=== PATIENT | female | born 1960 | race Caucasian/White ===

== ENCOUNTER 2016-12-02 09:42 | Inpatient (IN) | payer MEDICAID, OTHER ==
[~2016-12-02] VITALS: Ht 170.2 cm; Wt 90.7 kg
[~2016-12-02 09:42] MED LIST: ALBU2.5V13 NEB; CLON1TAB PO; FLEXERIL; FLUT16SP2 NS; GABA600T2 PO; HYDR-3326 PO; LEVE500T9 PO; LEVO750T21 PO; Menthol/Cetylpyrd Cl PO; PHEN100C4 PO; PRED10TA PO; PRED20TA GT; PRED50TA PO; VENL75TA54 PO
[2016-12-02] MEDS ORDERED: IV SET PRIMARY PUMP SET 1 EA INFUS.SET MC ONE ×2 (12:55→20:43)
[2016-12-02] MEDS ORDERED: IV NS 0.9% 1,000 ML ONE ×2 (12:55→15:40)
[2016-12-02] MEDS ORDERED: IV NS 0.9% 1,000 ML IV ONE ×2 (13:00→15:30)
[2016-12-02 13:03] LABS: BASOPHILS # (AUTO) 0.1 /CMM (0.0-0.2); BASOPHILS % (AUTO) 0.6 % (0.0-2.0); EOSINOPHILS # (AUTO) 0.3 /CMM (0.0-0.7); EOSINOPHILS % (AUTO) 2.8 % (0.0-6.0); HEMATOCRIT 35 % (33-45); HEMOGLOBIN 12.1 g/dL (11.5-14.8); LYMPHOCYTES # (AUTO) 3.2 /CMM (0.8-4.8); LYMPHOCYTES % (AUTO) 32.7 % (20.0-44.0); MEAN CORPUSCULAR HEMOGLOBIN 35 PG (26.0-33.0); MEAN CORPUSCULAR HGB CONC 35 g/dl (31.0-36.0); MEAN CORPUSCULAR VOLUME 100 fL (82-100); MONOCYTES # (AUTO) 0.4 /CMM (0.1-1.30); MONOCYTES % (AUTO) 4.4 % (2.0-12.0); NEUTROPHILS # (AUTO) 5.9 /CMM (1.8-8.9); NEUTROPHILS % (AUTO) 59.5 % (43.0-81.0); PLATELET COUNT (AUTO) 197 /CMM (150-450); RDW COEFFICIENT OF VARIATION 12.4 (11.5-15.0); RED BLOOD CELL COUNT(AUTO) 3.52 MIL/uL (4.0-5.2); WHITE BLOOD COUNT (AUTO) 9.9 K/uL (4.3-11.0)
[2016-12-02 13:15] LABS: CALCIUM, SERUM 9.9 mg/dL (8.5-10.1); CARBON DIOXIDE 32 mmol/L (21-32); CHLORIDE 90 mmol/L (98-107); CREATININE 2.2 mg/dL (0.6-1.3); GLUCOSE 84 mg/dL (74-106); POTASSIUM 3.2 mmol/L (3.5-5.1); SODIUM SERUM 129 mmol/L (136-145); UREA NITROGEN, BLOOD 32 mg/dL (7-18)
[2016-12-02 13:30] LABS: ACETAMINOPHEN 0 ug/ml (10-30); ALANINE AMINOTRANSFERASE 22 U/L (12-78); ALBUMIN 3.8 g/dL (3.4-5.0); ALCOHOL, BLOOD < 3 mg/dL (0-0); ALKALINE PHOSPHATASE 82 U/L (46-116); ASPARTATE AMINOTRANSFERASE 23 U/L (15-37); BILIRUBIN,DIRECT 0.1 mg/dL (0.0-0.2); BILIRUBIN,TOTAL 0.3 mg/dL (0.2-1.0); SALICYLATE 17.9 mg/dL (2.8-20.0); TOTAL PROTEIN, SERUM 6.6 g/dL (6.4-8.2)
[2016-12-02] MEDS ORDERED: POTASSIUM CHLORIDE 20 MEQ TAB.PRT.SR PO ONE ×2 (14:59→15:00)
[2016-12-02] MEDS ORDERED: IV SET PRIMARY 1 EA INFUS.SET MC ONE (15:40)
[2016-12-02] MEDS ORDERED: PHEN37.511 PO (16:57)
[2016-12-02] MEDS ORDERED: DIPH1TAB70 PO (16:57)
[2016-12-02] MEDS ORDERED: CLON1TAB4 PO (16:57)
[2016-12-02] MEDS ORDERED: ZOLP5TAB7 PO (16:57)
[2016-12-02] MEDS ORDERED: CALC1TAB30 PO (16:57)
[2016-12-02] MEDS ORDERED: IBUP-1481 PO (16:57)
[2016-12-02] MEDS ORDERED: TRAM50TA2 PO (16:57)
[2016-12-02 18:12] VITALS: BP 95/59
[2016-12-02] MEDS ORDERED: MAGNESIUM HYDROXIDE 30 ML UDC PO PRN (19:30)
[2016-12-02] MEDS ORDERED: ONDANSETRON HCL/PF 4 MG/2 ML VIAL IVP PRN (19:30)
[2016-12-02] MEDS ORDERED: MAG HYDROX/AL HYDROX/SIMETH 30 ML UDC PO PRN (19:30)
[2016-12-02] MEDS ORDERED: ACETAMINOPHEN 325 MG TABLET PO PRN (19:30)
[2016-12-02 20:00] VITALS: BP 85/53
[2016-12-02 20:48] VITALS: BP 85/53
[2016-12-02] MEDS: IV NS 0.9% 1,000 ML IV PRN (20:57)
[2016-12-03] MEDS: IBUPROFEN 400 MG TABLET PO PRN ×3 (03:12→20:59)
[2016-12-03 04:50] VITALS: BP 148/106
[2016-12-03] MEDS: IV NS 0.9% 1,000 ML IV PRN ×2 (05:51→21:01)
[2016-12-03 06:37] LABS: BASOPHILS % (AUTO) 0.2 % (0.0-2.0); EOSINOPHILS # (AUTO) 0.2 /CMM (0.0-0.7); EOSINOPHILS % (AUTO) 2.1 % (0.0-6.0); HEMATOCRIT 34 % (33-45); HEMOGLOBIN 11.7 g/dL (11.5-14.8); LYMPHOCYTES # (AUTO) 2.3 /CMM (0.8-4.8); LYMPHOCYTES % (AUTO) 26.2 % (20.0-44.0); MEAN CORPUSCULAR HEMOGLOBIN 35 PG (26.0-33.0); MEAN CORPUSCULAR HGB CONC 35 g/dl (31.0-36.0); MEAN CORPUSCULAR VOLUME 101 fL (82-100); MONOCYTES # (AUTO) 0.4 /CMM (0.1-1.30); MONOCYTES % (AUTO) 4.9 % (2.0-12.0); NEUTROPHILS # (AUTO) 5.8 /CMM (1.8-8.9); NEUTROPHILS % (AUTO) 66.6 % (43.0-81.0); PLATELET COUNT (AUTO) 185 /CMM (150-450); RDW COEFFICIENT OF VARIATION 13.4 (11.5-15.0); RED BLOOD CELL COUNT(AUTO) 3.31 MIL/uL (4.0-5.2); WHITE BLOOD COUNT (AUTO) 8.7 K/uL (4.3-11.0)
[2016-12-03 07:03] LABS: CALCIUM, SERUM 9.3 mg/dL (8.5-10.1); CREATININE 1.4 mg/dL (0.6-1.3); PHOSPHORUS 4.3 mg/dL (2.5-4.9); POTASSIUM 3.4 mmol/L (3.5-5.1)
[2016-12-03 07:20] LABS: THYROID STIMULATING HORMONE 3.449 uIU/mL (0.358-3.74)
[2016-12-03 08:00] VITALS: BP 90/59
[2016-12-03] MEDS: PANTOPRAZOLE 40 MG TABLET.DR PO SCH (08:48)
[2016-12-03] MEDS ORDERED: POTASSIUM CHLORIDE 20 MEQ TAB.PRT.SR PO ONE (10:30)
[2016-12-03] MEDS ORDERED: HYDROCODONE/APAP 5/325MG 1 EACH TABLET PO ONE ×2 (11:00→23:00)
[2016-12-03 16:00] VITALS: BP 94/56
[2016-12-03 20:00] VITALS: BP 98/59
[2016-12-04] MEDS ORDERED: HYDROCODONE/APAP 5/325MG 1 EACH TABLET ONE (00:35)
[2016-12-04 07:18] LABS: CALCIUM, SERUM 8.7 mg/dL (8.5-10.1); CREATININE 0.8 mg/dL (0.6-1.3); POTASSIUM 3.8 mmol/L (3.5-5.1)
[2016-12-04] MEDS: PANTOPRAZOLE 40 MG TABLET.DR PO SCH (07:44)
[2016-12-04 08:00] VITALS: BP 113/75
[2016-12-04] MEDS: IBUPROFEN 400 MG TABLET PO PRN ×2 (10:55→20:11)
[2016-12-04 16:00] VITALS: BP 122/75
[2016-12-04 20:00] VITALS: BP 146/88
[2016-12-05] MEDS: PANTOPRAZOLE 40 MG TABLET.DR PO SCH (07:30)
[2016-12-05 08:00] VITALS: BP 141/80
[2016-12-05] MEDS ORDERED: NEOMY SULF/BACITRAC ZN/POLY 15 GM TUBE TP SCH (11:00)
== END 2016-12-05 13:36 | disposition home or self-care (01) | DRG 812 ==
LOC: ER 09:43 → OBSVTOIN 17:05 → MED 17:05
PROVIDERS: ADMIT Internal Medicine
DX: T42.6X1A Poisoning by other antiepileptic and sedative-hypnotic drugs, accidental (unintentional), initial encounter (principal); G92 Toxic encephalopathy; E87.1 Hypo-osmolality and hyponatremia; F33.1 Major depressive disorder, recurrent, moderate; T42.4X1A Poisoning by benzodiazepines, accidental (unintentional), initial encounter; Y92.099 Unspecified place in other non-institutional residence as the place of occurrence of the external cause; I10 Essential (primary) hypertension; J44.9 Chronic obstructive pulmonary disease, unspecified; K21.9 Gastro-esophageal reflux disease without esophagitis; G40.909 Epilepsy, unspecified, not intractable, without status epilepticus; Z91.5 Personal history of self-harm; F43.10 Post-traumatic stress disorder, unspecified; Z79.899 Other long term (current) drug therapy; F41.9 Anxiety disorder, unspecified; F40.00 Agoraphobia, unspecified; G89.29 Other chronic pain; M54.5 Low back pain
CPT/HCPCS: 36415; 80048-TC; 80061-TC; 80076-TC; 83735-TC; 84100-TC; 84295-TC; 84443-TC; 85025-TC; 87081-TC; A4606; G0378; G0480; J7030; Z7610

== ENCOUNTER 2017-02-04 16:17 | Inpatient (IN) | payer MEDICAID ==
[~2017-02-04] VITALS: Ht 162.6 cm; Wt 82.6 kg
[~2017-02-04 16:17] MED LIST changes: -ALBU2.5V13 NEB; +CALC1TAB30 PO; -CLON1TAB PO; +CLON1TAB4 PO; -FLEXERIL; -FLUT16SP2 NS; -GABA600T2 PO; -HYDR-3326 PO; +IBUP-1481 PO; -LEVE500T9 PO; -LEVO750T21 PO; -Menthol/Cetylpyrd Cl PO; -PHEN100C4 PO; -PRED10TA PO; -PRED20TA GT; -PRED50TA PO; +TRAM50TA2 PO; -VENL75TA54 PO
--- NOTE | 2017-02-04 16:23 | NUR ---
[id number] FROM [facility] OFFICE: CHRONIC NECK PAIN. NAUSEA SINCE AM. VSS Addendum: 02/04/17 at 1754 by [email or web address] REYNALDO FROM PCP-- DT NECK PAIN, PATIENT IS AWAKE, HOWEVER PATIENT APPEARS CONFUSED AND ALTERED. PATIENT DENIES CHEST PAIN. RESPIRATION EVEN AND UNLABORED. SKIN IS WARM TO TOUCH AND NON DIAPHORETIC. PATIENT IS AFEBRILE. SKIN IS WARM TO TOUCH AND NON DIAPHORETIC. PATIENT IS AFEBRILE
[2017-02-04] MEDS ORDERED: ONDANSETRON HCL/PF 4 MG/2 ML VIAL ONE (17:12)
[2017-02-04] MEDS ORDERED: DEXTROSE 50%-WATER 50 ML DISP.SYRIN ONE (17:20)
[2017-02-04] MEDS ORDERED: IV NS 0.9% 1,000 ML BAG IV ONE ×3 (17:30→20:00)
[2017-02-04] MEDS ORDERED: DEXTROSE 50%-WATER 50 ML DISP.SYRIN IV ONE (17:30)
[2017-02-04] MEDS ORDERED: ONDANSETRON HCL/PF 4 MG/2 ML VIAL IVP ONE (17:30)
[2017-02-04 17:36] LABS: BASOPHILS # (AUTO) 0.1 /CMM (0.0-0.2); BASOPHILS % (AUTO) 0.5 % (0.0-2.0); EOSINOPHILS # (AUTO) 0.3 /CMM (0.0-0.7); HEMATOCRIT 31 % (33-45); HEMOGLOBIN 10.5 g/dL (11.5-14.8); LYMPHOCYTES # (AUTO) 2.2 /CMM (0.8-4.8); LYMPHOCYTES % (AUTO) 16.5 % (20.0-44.0); MEAN CORPUSCULAR HEMOGLOBIN 35 PG (26.0-33.0); MEAN CORPUSCULAR HGB CONC 34 g/dl (31.0-36.0); MEAN CORPUSCULAR VOLUME 101 fL (82-100); MONOCYTES # (AUTO) 0.4 /CMM (0.1-1.30); MONOCYTES % (AUTO) 3.3 % (2.0-12.0); NEUTROPHILS # (AUTO) 10.2 /CMM (1.8-8.9); NEUTROPHILS % (AUTO) 77.7 % (43.0-81.0); PLATELET COUNT (AUTO) 218 /CMM (150-450); RDW COEFFICIENT OF VARIATION 12.5 (11.5-15.0); RED BLOOD CELL COUNT(AUTO) 3.03 MIL/uL (4.0-5.2); WHITE BLOOD COUNT (AUTO) 13.2 K/uL (4.3-11.0)
[2017-02-04] MEDS ORDERED: NALOXONE HCL 0.4 MG/ML AMPUL ONE (17:39)
[2017-02-04 17:42] LABS: CALCIUM, SERUM 9.5 mg/dL (8.5-10.1); CARBON DIOXIDE 27 mmol/L (21-32); CHLORIDE 98 mmol/L (98-107); CREATININE 2.2 mg/dL (0.6-1.3); GLUCOSE 138 mg/dL (74-106); POTASSIUM 4.1 mmol/L (3.5-5.1); SODIUM SERUM 133 mmol/L (136-145); UREA NITROGEN, BLOOD 25 mg/dL (7-18)
[2017-02-04 17:48] LABS: ALANINE AMINOTRANSFERASE 53 U/L (12-78); ALBUMIN 3.8 g/dL (3.4-5.0); ALCOHOL, BLOOD < 3 mg/dL (0-0); ALKALINE PHOSPHATASE 90 U/L (46-116); ASPARTATE AMINOTRANSFERASE 173 U/L (15-37); BILIRUBIN,DIRECT 0.2 mg/dL (0.0-0.2); BILIRUBIN,TOTAL 0.8 mg/dL (0.2-1.0); TOTAL PROTEIN, SERUM 8.3 g/dL (6.4-8.2)
[2017-02-04 17:49] LABS: TROPONIN I < 0.017 ng/mL (0.00-0.056)
[2017-02-04] MEDS ORDERED: NALOXONE HCL 0.4 MG/ML AMPUL IV ONE (18:00)
--- NOTE | 2017-02-04 18:08 | NUR ---
(16 ) FR mondragon catheter inserted per sterile protocal. Immediate output ( 100)ML of urine, color (YELLOW ), clarity (CLEAR )
[2017-02-04 18:19] LABS: ACETAMINOPHEN < 2 ug/ml (10-30); SALICYLATE < 2.8 mg/dL (2.8-20.0)
[2017-02-04 18:23] LABS: APPEARANCE,URINE Cloudy (CLEAR); BILIRUBIN,URINE Negative (NEGATIVE); BLOOD, URINE Moderate Ery/uL (NEGATIVE); COLOR,URINE Yellow (YELLOW); KETONES,URINE Negative (NEGATIVE); LEUKOCYTE ESTERASE ,URINE Small (NEGATIVE); NITRITE, URINE Negative (NEGATIVE); PH,URINE 5.5 (5.0-8.0); PROTEIN,URINE Trace mg/dl (NEGATIVE); UGLUCOSE Negative (NEGATIVE); UROBILINOGEN,URINE 0.2 EU/dL (0.2)
[2017-02-04 18:40] LABS: BACTERIA,URINE Many /HPF (None Seen); SQUAMOUS EPITHELIAL CELL,UR Few /HPF (None Seen)
[2017-02-04] MEDS ORDERED: ALBU18HF2 IH (18:55)
[2017-02-04] MEDS ORDERED: CHLO25TA2 PO (18:55)
[2017-02-04] MEDS ORDERED: GABA-534 PO (18:55)
[2017-02-04] MEDS ORDERED: LOSA50TA21 PO (18:55)
[2017-02-04] MEDS ORDERED: VENL225T PO (18:55)
[2017-02-04] MEDS ORDERED: DICY10CA59 PO (18:55)
[2017-02-04] MEDS ORDERED: GEMF600T3 PO (18:55)
[2017-02-04] MEDS ORDERED: CETI-232 PO (18:55)
--- NOTE | 2017-02-04 18:55 | NUR ---
CALLED NURSING FOOTWEAR SALES ASSOCIATE FOR TELE BED
--- NOTE | 2017-02-04 19:11 | NUR ---
PAGED COMMUNITY RELATIONS POLICE LIEUTENANT FOR PANEL DR RAFA MAHARAJ
--- NOTE | 2017-02-04 19:14 | NUR ---
RECEIVED REPORT FROM BALDEV FLOYD FOR GIA.
--- NOTE | 2017-02-04 19:17 | NUR ---
PT RETURNED FROM CT.
--- NOTE | 2017-02-04 19:50 | NUR ---
CALLED NURSING VESSEL WELDER TO FOLLOW UP ON TELE BED
[2017-02-04] MEDS ORDERED: Z GUARD REMEDY 2 OZ OINT TP PRN (20:30)
[2017-02-04] MEDS ORDERED: ONDANSETRON HCL/PF 4 MG/2 ML VIAL IVP PRN (20:30)
[2017-02-04] MEDS ORDERED: MAG HYDROX/AL HYDROX/SIMETH 30 ML UDC PO PRN (20:30)
[2017-02-04] MEDS ORDERED: MAGNESIUM HYDROXIDE 30 ML UDC PO PRN (20:30)
[2017-02-04] MEDS ORDERED: ACETAMINOPHEN 325 MG TABLET PO PRN (20:30)
--- NOTE | 2017-02-04 20:42 | NUR ---
REPORT GIVEN TO BALDEV BENSON FOR [facility] BED 112-2
--- NOTE | 2017-02-04 20:45 | NUR ---
ADMIT GROUNDSKEEPING YARDMAN NOTES ADMITTED 56 YR OLD FEMALE, AOX3, WITH EPISODE OF CONFUSION, VERBALLY RESPONSIVE, ON NC @ 4 LP/M, BREATHING EVEN UNLABORED, DENIES ANY PAIN AT THIS TIME OR SOB, SKIN INTACT, ABD SOFT NON TENDER, WITH F/C, PATENT, DRAINING WELL WITH 650 C/Y O/P, V/S STABLE, KEPT CLEAN AND DRY, ALL NEEDS MET, WELL SAFETY MEASURES IN PLACE, CALL LIGHT WITHIN REACH.
--- NOTE | 2017-02-04 20:51 | NUR ---
PT TRASNFERED PER ACLS PROTOCOL.
[2017-02-04] MEDS: IV NS 0.9% 1,000 ML IV PRN (22:22)
--- NOTE | 2017-02-05 01:06 | NUR ---
0000AM PT SEEN BY DR MAHARAJ BY BED SIDE.
[2017-02-05] MEDS ORDERED: HYDROCODONE/APAP 5/325MG 1 EACH TABLET ONE (05:09)
[2017-02-05] MEDS: HYDROCODONE/APAP 5/325MG 1 EACH TABLET PO PRN ×3 (05:12→22:59)
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
--- NOTE | 2017-02-05 06:58 | NUR ---
0520AM [place] [phone] STOCK MED GIVEN BY [facility]SE.
[2017-02-05 07:09] LABS: BASOPHILS # (AUTO) 0.1 /CMM (0.0-0.2); BASOPHILS % (AUTO) 0.8 % (0.0-2.0); EOSINOPHILS # (AUTO) 0.4 /CMM (0.0-0.7); EOSINOPHILS % (AUTO) 3.2 % (0.0-6.0); HEMATOCRIT 32 % (33-45); LYMPHOCYTES # (AUTO) 3.6 /CMM (0.8-4.8); LYMPHOCYTES % (AUTO) 27.2 % (20.0-44.0); MEAN CORPUSCULAR HEMOGLOBIN 36 PG (26.0-33.0); MEAN CORPUSCULAR HGB CONC 35 g/dl (31.0-36.0); MEAN CORPUSCULAR VOLUME 103 fL (82-100); MONOCYTES # (AUTO) 0.6 /CMM (0.1-1.30); MONOCYTES % (AUTO) 4.6 % (2.0-12.0); NEUTROPHILS # (AUTO) 8.5 /CMM (1.8-8.9); NEUTROPHILS % (AUTO) 64.2 % (43.0-81.0); PLATELET COUNT (AUTO) 224 /CMM (150-450); RDW COEFFICIENT OF VARIATION 13.7 (11.5-15.0); WHITE BLOOD COUNT (AUTO) 13.2 K/uL (4.3-11.0)
--- NOTE | 2017-02-05 07:13 | NUR ---
0523AM PT DISCONNECTED SELF FROM IV FLUIDS, RISK AND BENEFIT EXPLAINED.
[2017-02-05] MEDS: PANTOPRAZOLE 40 MG TABLET.DR PO SCH (07:30)
--- NOTE | 2017-02-05 07:35 | NUR ---
MANAGER BANQUET OPENING NOTE PATIENT IS ALERT AND ORIENTED x3. NO PAIN AT THIS TIME. NO SOB OR DISTRESS NOTED. CALL LIGHT WITHIN REACH. SAFETY MEASURES IMPLEMENTED. PATIENT IS CONFUSED AND FORGETFUL AT TIMES, NEEDS TO BE REORIENTED OR ASSISTED WITH CARE. AMBULATORY WITH STANDBY ASSISTANCE, REGULAR DIET. PATIENT REFUSES TO HAVE IV FLUIDS RUNNING AT THIS TIME, VERY NON-COMPLIANT WITH IV FLUIDS AND MEDICATIONS SAYING " I DON'T NEED THOSE MEDICATIONS SO IM NOT TAKING THEM". INFORMED CHIEF INTERNAL AUDITOR RIAZ. ABLE TO COMMUNICATE NEEDS. PATIENT REQUESTS TO SMOKE QUITE OFTEN, SMOKING WAIVER SIGNED. MONITORING BLOOD PRESSURE AT THIS TIME. WILL CONTINUE TO MONITOR
[2017-02-05 07:42] LABS: CALCIUM, SERUM 8.2 mg/dL (8.5-10.1); CREATININE 1.7 mg/dL (0.6-1.3); MAGNESIUM 1.8 mg/dL (1.8-2.4); PHOSPHORUS 4.2 mg/dL (2.5-4.9); POTASSIUM 4.3 mmol/L (3.5-5.1)
--- NOTE | 2017-02-05 07:45 | NUR ---
PT IS NON COMPLIANT WITH THE CARE . FORGETFUL, CONFUSE ,VERBALLY AGGRESSIVE TOWARDS NURSES. REFUSED FOR V/S , TELE MONITOR , F/C . F/C D'CD PER PT ASK , ABLE TO URINATE HERSELF. 0300 AM PT KEEP ASKING FOR HER DIGITAL PRODUCTION OPERATOR AND LEGGINGS WHICH COST $ 800 , PT WAS SHOWED THE BELONGINGS LIST AND INFORMED THAT SHE NEVER HAD DIGITAL PRODUCTION OPERATOR AND LEGGINGS WHEN SHE ADMITTED . PT REFUSED TO SIGN THE BELONGING LIST AT THE TIME OF ADMISSION .BELONGINGS LIST SIGNED BY PRIMARY NURSE AND EXPLOSIVE ORDNANCE HANDLER . DIRECTOR OF INSTRUCTION TALKED TO PT , PT WAS VERBALLY AGGRESSIVE TOWARDS DIRECTOR OF INSTRUCTION . UNSTEADY GAIT WALKING IN THE HALLWAY , DOES NOT WANT TO ASSIST , VERBALIZED NOT TO TOUCH HER, RISK EXPLAINED X 3 , WANTS TO GO OUT FOR SMOKING , SMOKING WAVER SIGNED BY PT . PT ASSISTED TO SMOKING PATIO WITH AM SHIFT EXPLOSIVE ORDNANCE HANDLER . RETURNED BACK IN STABLE CONDITION. PT WANTS TO TRANSFER TO MED SURG FLOOR , VERBALIZED 'I DON'T BELONG TO THIS CRITICAL UNIT, I NEED TO BE IN VERY LIGHT UNIT " DIESEL LUBE TECH DR WHITLOCK IF SHE CAN BE MED SURG STATUS .
[2017-02-05 08:00] VITALS: BP_SYST 72; BP_SYST 74; BP_DIAS 30
[2017-02-05] MEDS ORDERED: LOSARTAN POTASSIUM 50 MG TABLET PO SCH (09:00)
[2017-02-05] MEDS: GEMFIBROZIL 600 MG TABLET PO SCH ×2 (09:00→16:28)
[2017-02-05] MEDS: GABAPENTIN 300 MG CAPSULE PO SCH ×3 (09:00→16:28)
--- NOTE | 2017-02-05 09:10 | NUR ---
CORRESPONDENT NOTE PATIENT IS REFUSING TO TAKE MEDICATIONS. EXPLAINED RISKS AND BENEFITS. PATIENT STILL REFUSED, PATIENT STATES SHE DOESN'T NEED THOSE MEDICATIONS AND THAT SHE WILL NOT TAKE THEM. NOTIFIED GLOBAL PROCESS OWNER RIAZ
[2017-02-05 12:00] VITALS: BP 81/46
[2017-02-05 16:00] VITALS: BP 82/38
--- NOTE | 2017-02-05 18:45 | NUR ---
MS RN CLOSING NOTE PATIENT IS ALERT AND ORIENTED x4. NO PAIN AT THIS TIME. NO SOB OR DISTRESS NOTED. CALL LIGHT WITHIN REACH AT ALL TIMES. SAFETY MEASURES IMPLEMENTED. IV INTACT AND PATENT NO REDNESS OR SWELLING. AMBULATORY. REFUSED MEDICATION THIS MORNING, EXPLAINED RISKS AND BENEFITS, PATIENT STILL REFUSED. HAD NEURO CONSULT TODAY WITH DR. RON. [place] [facility] [place] WILL ENDORSE TO KITCHEN BATH DESIGNER NURSE
--- NOTE | 2017-02-05 19:30 | NUR ---
[facility] RN NOTES: RECEIVED PT ON BED ASLEEP EASILY AROUSABLE, ALOX2 NOTED TO BE CONFUSED WITH TIME SHE ASKED "WHAT TIME IDS MY BREAKFAST COMING?" REORIENTED TO TIME AND PLACE. ON ROOM AIR, TOLERATED WELL. SR ON MONITOR. IV ACCESS ON R HAND INTACT, REFUSING IVF OF THIS TIME SHE WANTED TO GO TO THE BATHROOM AND SMOKE AFTER. TO HAVE DECK SUPERVISOR ASSIST PATIENT. PATIENT TO TRANSFER TO 3RD FLOOR MS/TELE UNIT. REPORT GIVEN TO MIRA. 2030 TRANSFERRED PATIENT TO [facility] WITH 2 BAGS OF BELONGINGS AND WITH A BROWN SLING BAG KEPT BY PATIENT. ENDORSED TO MIRA.
[2017-02-05 20:00] VITALS: BP 99/64
--- NOTE | 2017-02-05 20:40 | NUR ---
ELECTRICAL TESTER BATTERY OPENING NOTES: RECEIVED PT COMING FROM TRANSFERRING FROM [facility] AND JUST COMING BACK FROM A SMOKE BREAK ASSISTED WITH [facility] HARNESS PREPARER. PT IS REFUSING TELE BOX. PT WANTS TO GET SETTLED BEFORE GETTING HER VITALS CHECKED. PT IS A/O X3. PT HAS IV ON R WRIST #20 G. PT IS AMBULATORY. NO SIGNS OR SYMPTOMS OF DISTRESS NOTED AT THIS TIME. WILL CONTINUE TO MONITOR PT.
--- NOTE | 2017-02-05 21:33 | NUR ---
ITALIAN TEACHER NOTES: PT IS ON STANDBY TELE FOR NOW. PT IS REFUSING TO HAVE HER IV FLUSHED AND BE CONNECTED TO FLUIDS. WILL CONTINUE TO MONITOR PT. PT IS COMPLAINING OF NOT HAVING A BM AND WAS OFFERED MILK OF MAGNESIA. PT REFUSED. PT WOULD LIKE COFFEE AND A CIGARETTE.
[2017-02-05 22:30] VITALS: BP 94/67
[2017-02-05] MEDS: IV NS 0.9% 1,000 ML IV PRN (22:40)
--- NOTE | 2017-02-05 22:59 | NUR ---
TAILOR FITTER NOTE: PT IS COMPLAINING OF 10/10 SEE AND BACK PAIN ALONG WITH GENERALIZED PAIN. OFFERED PT EITHER TYLENOL OR NORCO WHICH IS ON HER EMAR. PT AGREED TO TAKE NORCO5-325MG PO ALTHOUGH PT IS REQUESTING FOR A HIGHER DOSE. EXPLAINED TO PT THAT DR ONLY ORDERED THOSE 2 MEDS FOR HER. WILL CONTINUE TO MONITOR PT.
[2017-02-06] VITALS: BP 114/70
--- NOTE | 2017-02-06 | NUR ---
BIOSTATISTICIAN NOTES: PT IS REQUESTING FOR SLEEPING AID MEDICATION AND SAYS THAT SHE TAKES AMBIEN 10MG PO AT HOME. SPOKE WITH PARTY BUS DRIVER ALICIA GRIDER AND HE GAVE ME AN ORDER FOR AMBIEN 5MG PO ONE TIME ONLY.
[2017-02-06] MEDS ORDERED: ZOLPIDEM TARTRATE 5 MG TABLET ONE (00:07)
[2017-02-06] MEDS ORDERED: ZOLPIDEM TARTRATE 5 MG TABLET PO ONE (00:30)
[2017-02-06 04:00] VITALS: BP 116/70
[2017-02-06 06:42] LABS: BASOPHILS % (AUTO) 0.3 % (0.0-2.0); EOSINOPHILS # (AUTO) 0.3 /CMM (0.0-0.7); EOSINOPHILS % (AUTO) 3.2 % (0.0-6.0); HEMATOCRIT 30 % (33-45); HEMOGLOBIN 10.4 g/dL (11.5-14.8); LYMPHOCYTES # (AUTO) 2.5 /CMM (0.8-4.8); LYMPHOCYTES % (AUTO) 25.6 % (20.0-44.0); MEAN CORPUSCULAR HEMOGLOBIN 35 PG (26.0-33.0); MEAN CORPUSCULAR HGB CONC 34 g/dl (31.0-36.0); MEAN CORPUSCULAR VOLUME 103 fL (82-100); MONOCYTES # (AUTO) 0.5 /CMM (0.1-1.30); MONOCYTES % (AUTO) 4.9 % (2.0-12.0); NEUTROPHILS # (AUTO) 6.4 /CMM (1.8-8.9); PLATELET COUNT (AUTO) 186 /CMM (150-450); RDW COEFFICIENT OF VARIATION 13.7 (11.5-15.0); RED BLOOD CELL COUNT(AUTO) 2.93 MIL/uL (4.0-5.2); WHITE BLOOD COUNT (AUTO) 9.7 K/uL (4.3-11.0)
--- NOTE | 2017-02-06 06:44 | NUR ---
MINE UTILITY OPERATOR NOTES: PT IS STILL REFUSING TO HAVE TELE BOX PLACED ON HER. PT WAS DISCONNECTED FROM HER IV TO USE THE BATHROOM. PT IS NOW REFUSING TO BE CONNECTED BACK TO HER FLUIDS AND WOULD LIKE TO GO BACK TO SLEEP.
[2017-02-06 07:09] LABS: CALCIUM, SERUM 8.2 mg/dL (8.5-10.1); CREATININE 1.4 mg/dL (0.6-1.3); POTASSIUM 4.5 mmol/L (3.5-5.1)
--- NOTE | 2017-02-06 07:39 | NUR ---
MEDICAL LABORATORY TECHNICAL OFFICER CLOSING NOTES: ALL NEEDS WERE ATTENDED AND ANTICIPATED FOR. PT IS IN BED AND WOULD LIKE TO SLEEP SOME MORE. PT IS A/OX3. PT'S PHONE THAT WAS CHARGING AT NURSING STATION WAS RETURNED WITH THE WITNESS OF ANOTHER RN, ROSA. PT REFUSES TO BE CONNECTED BACK TO HER IV FLUIDS. PT HAS IV ON R WRIST #20G AND ARIELLE #20G AND ARE BOTH PATENT AND INTACT. NO SIGNS OR SYMPTOMS OF DISTRESS NOTED AT THIS TIME. ENDORSED TO AM NURSE FOR GIA.
--- NOTE | 2017-02-06 07:51 | NUR ---
BALLET COMPANY MEMBER NOTES RECEIVED PATIENT IN BED, VERBALLY RESPONSIVE. NO APPARENT DISTRESS NOTED, DENIES PAIN, DENIES SOB. PATIENT IS REFUSING TELE BOX, ALSO REFUSING IV FLUIDS AT THIS TIME. RIGHT WRIST AND ARIELLE IV LINES PATENT. ALL NEEDS MET, CALL LIGHT WITHIN REACH.
[2017-02-06 08:00] VITALS: BP 138/96
[2017-02-06] MEDS: GEMFIBROZIL 600 MG TABLET PO SCH ×2 (09:00→17:00)
[2017-02-06] MEDS ORDERED: HYDROCHLOROTHIAZIDE 25 MG TABLET PO SCH (09:00)
[2017-02-06] MEDS: GABAPENTIN 300 MG CAPSULE PO SCH ×3 (09:16→17:31)
[2017-02-06] MEDS: PANTOPRAZOLE 40 MG TABLET.DR PO SCH (09:16)
--- NOTE | 2017-02-06 09:30 | NUR ---
SHOE ASSOCIATE NOTES SEEN AND EVALUATED BY MD WITH NO NEW ORDERS. RIAZ AWARE THAT PATIENT IS REFUSING IV FLUIDS AND TELE BOX.
--- NOTE | 2017-02-06 13:00 | NUR ---
ORE GRADER NOTES PATIENT REFUSING TELE MONITOR AND IV FLUIDS. AWARE
[2017-02-06] MEDS: HYDROCODONE/APAP 5/325MG 1 EACH TABLET PO PRN (13:35)
[2017-02-06 16:00] VITALS: BP 130/70
--- NOTE | 2017-02-06 17:33 | NUR ---
MANAGER ANIMATION NOTES PATIENT STILL REFUSING IV FLUIDS AND TELE BOX.
--- NOTE | 2017-02-06 19:14 | NUR ---
RN MS CLOSING NOTES PATIENT IN BED, VERBALLY RESPONSIVE. NO APPARENT DISTRESS NOTED, DENIES PAIN, DENIES SOB. IV LINE ON RIGHT WRIST AND ARIELLE PATENT. PATIENT HAS BEEN REFUSING IV FLUIDS. ALL NEEDS MET, WILL ENDORSE CARE TO PM SHIFT.
--- NOTE | 2017-02-06 19:20 | NUR ---
RN NOTES RECEIVED PT ASLEEP, BREATHING REGULAR AND UNLABORED, NO SOB, NOT IN DISTRESS, ON ROOM AIR AND TOLERATED WELL. PT ALERT AND ORIENTED X3, DENIES PAIN, NAUSEA AND VOMITING AT THIS TIME. IV ACCESS ON RIGHT WRIST AND LEFT UPPER ARM PATENT AND INTACT. PT REFUSED FOR IVF. KEPT COMFORTABLE AND ATTENDED. KEPT BED IN THE LOWEST POSITION, LOCKED, SIDE RAILS UP X2, WITH CALL LIGHT WITH IN REACH. WILL CONTINUE TO MONITOR PT.
[2017-02-06 20:00] VITALS: BP 109/71
[2017-02-06 20:12] VITALS: BP 109/71
[2017-02-07] MEDS: HYDROCODONE/APAP 5/325MG 1 EACH TABLET PO PRN ×3 (05:47→17:48)
--- NOTE | 2017-02-07 05:47 | NUR ---
RN NOTES PT COMPLAINS OF NECK PAIN 01/09, NORCO 5/325 MG TAB GIVEN PO AND TOLERATED WELL. WILL CONTINUE TO MONITOR PT.
[2017-02-07 06:45] LABS: CALCIUM, SERUM 8.7 mg/dL (8.5-10.1); CREATININE 0.9 mg/dL (0.6-1.3); POTASSIUM 4.2 mmol/L (3.5-5.1)
--- NOTE | 2017-02-07 07:17 | NUR ---
RN NOTES PT ASLEEP, BREATHING REGULAR AND UNLABORED, NO SOB, NOT IN DISTRESS ON ROOM AIR AND TOLERATED WELL. VITAL SIGNS STABLE, AFEBRILE. NO EPISODE OF NAUSEA AND VOMITING. KEPT PAIN AT TOLERABLE LEVEL. ALL NEEDS ATTENDED. NO SIGNIFICANT CHANGE IN PT CONDITION NOTED. ENDORSED TO MORNING RN FOR CONTINUITY OF CARE.
[2017-02-07] MEDS: PANTOPRAZOLE 40 MG TABLET.DR PO SCH (07:30)
--- NOTE | 2017-02-07 07:38 | NUR ---
RN MS NOTES RECEIVED PATIENT IN BED, NO APPARENT DISTRESS NOTED, DENIES PAIN, DENIES SOB. IV LINE ON RIGHT WRIST PATENT, PATIENT REFUSING IV FLUIDS. ALL NEEDS MET, CALL LIGHT WITHIN REACH.
[2017-02-07 08:00] VITALS: BP 138/83
[2017-02-07] MEDS: GABAPENTIN 300 MG CAPSULE PO SCH ×3 (09:00→17:47)
[2017-02-07] MEDS: GEMFIBROZIL 600 MG TABLET PO SCH ×2 (09:00→17:47)
--- NOTE | 2017-02-07 09:06 | NUR ---
RN MS NOTES PATIENT REFUSED MORNING MEDS, STATES SHE WANTS TO SPEAK TO THE DR BEFORE TAKING ANY MEDICATIONS.
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
--- NOTE | 2017-02-07 13:00 | NUR ---
RN MS NOTES LEAD DATABASE ADMINISTRATOR LORETTA SPOKE TO PATIENT, PATIENT AGREED TO GO HOME.
--- NOTE | 2017-02-07 13:33 | NUR ---
RN MS NOTES ATTEMPTED TO HAVE PATIENT REVIEW AND SIGN DISCHARGE INSTRUCTIONS.DIVISION OPERATIONS SPECIALIST WENT IN THE ROOM WITH ME. PATIENT WOULD NOT SIGN UNTIL SHE SMOKES, AGREED TO SIGN AFTER SHE SMOKES. PATIENT IS UPSET, IS NOT FOLLOWING DIRECTIONS.
--- NOTE | 2017-02-07 16:00 | NUR ---
RN MS NOTES CHARGE NURSE SPOKE TO PATIENT ABOUT DISCHARGE, PER PATIENT SHE NEEDS AN HOUR TO SORT THINGS OUT.
[2017-02-07 16:06] VITALS: BP 120/82
--- NOTE | 2017-02-07 16:26 | NUR ---
RN MS NOTES DISCONTINUED IV LINE, TOLERATED WELL, NO BLEEDING NOTED.
--- NOTE | 2017-02-07 17:30 | NUR ---
RN MS NOTES PATIENT SATES SHE DOES NOT HAVE ANYWHERE TO GO. PATIENT SATES SHE SPOKE TO NANCY ([facility] FILLER WIPER), PER PATIENT SHE CANNOT GO BACK TO HER PREVIOUS PLACE. SHIPYARD PAINTER WILL WORK TO FIND A PLACE FOR PATIENT TOMORROW. PATIENT WILL NOT BE DISCHARGED TODAY.
--- NOTE | 2017-02-07 18:58 | NUR ---
RN MS CLOSING NOTES PATIENT IN BED, AWAKE AND VERBALLY RESPONSIVE. NO APPARENT DISTRESS NOTED, DENIES SOB. PATIENT WITH NECK PAIN, NECK X RAY NEGATIVE. PATIENTS IV REMOVED, SHE IS REFUSING IV FLUIDS, DUES NOT WANT ANOTHER ONE INSERTED. PATIENT TO BE DISCHARGED TOMORROW ONCE INSULATION PROFESSIONAL FINDS HER A PLACE. ALL DUE MEDS GIVEN ALL NEEDS MET. WILL ENDORSE CARE TO PM SHIFT.
--- NOTE | 2017-02-07 19:10 | NUR ---
RN NOTES RECEIVED PT AWAKE, NO SOB, NOT IN DISTRESS, ON ROOM AIR AND TOLERATED WELL. PT ALERT AND ORIENTED X3, DENIES PAIN, NAUSEA AND VOMITING AT THIS TIME.PT HAS NO IV ACCESS, REFUSED FOR IV INSERTION, RISK AND BENEFITS EXPLAINED, PT STRONGLY REFUSED. KEPT COMFORTABLE AND ATTENDED. KEPT BED IN THE LOWEST POSITION, LOCKED, SIDE RAILS UP X2, WITH CALL LIGHT WITH IN REACH. WILL CONTINUE TO MONITOR PT.
[2017-02-07 20:08] VITALS: BP 153/97
[2017-02-07 22:00] VITALS: BP 153/97
[2017-02-08] MEDS: HYDROCODONE/APAP 5/325MG 1 EACH TABLET PO PRN ×2 (04:00→08:22)
--- NOTE | 2017-02-08 04:00 | NUR ---
RN NOTES NORCO 5/325 MG TAB GIVEN PO FOR 7/10 PAIN ON HER NECK. WILL CONTINUE TO MONITOR.
--- NOTE | 2017-02-08 07:36 | NUR ---
RN NOTES PT ASLEEP, BREATHING REGULAR AND UNLABORED, NO SOB, NOT IN DISTRESS ON ROOM AIR AND TOLERATED WELL. VITAL SIGNS STABLE, AFEBRILE. NO EPISODE OF NAUSEA AND VOMITING. KEPT PAIN AT TOLERABLE LEVEL. ALL NEEDS ATTENDED. NO SIGNIFICANT CHANGE IN PT CONDITION NOTED. FOR D/C HOME TODAY, PLS F/U WITH CM. ENDORSED TO MORNING RN FOR CONTINUITY OF CARE.
--- NOTE | 2017-02-08 07:45 | NUR ---
RN MS NOTES PT IN BED, ASLEEP, EASILY AROUSABLE, ALERT AND ORIENTED, NO COMPLAINT OF PAIN OR ANY DISCOMFORT, CALL LIGHT WITHIN REACH.
[2017-02-08 08:00] VITALS: BP 162/107
[2017-02-08] MEDS: PANTOPRAZOLE 40 MG TABLET.DR PO SCH (08:22)
[2017-02-08] MEDS: GEMFIBROZIL 600 MG TABLET PO SCH (08:22)
[2017-02-08] MEDS: GABAPENTIN 300 MG CAPSULE PO SCH (08:22)
--- NOTE | 2017-02-08 10:11 | NUR ---
RN MS NOTES PT SEEN BY ALICIA MONTANO, INFORMED OF PT'S BP, NO NEW ORDER GIVEN AT THIS TIME.
[2017-02-08 10:12] VITALS: BP 146/103
--- NOTE | 2017-02-08 12:34 | NUR ---
SAÚL, and patient case manager Lev and Shante met with pt. to discuss discharge plan. Pt. is alert and oriented x4. Pt. appeared in an elated mood and informed SAÚL she is going to a transitional housing program and will leave [facility] at 1:20PM. Pt. informed SW she will need a bus token as well to get to the program and then meet with her vocational case manager Marisa at [employer]. SAÚL informed pt's BALDEV Lowry and Sekou Mcguire regarding discharge plan and pt. needing a bus token upon discharge.
--- NOTE | 2017-02-08 13:45 | NUR ---
RN MS NOTES PT AWAKE, GETTING READY TO GO TO HER TRANSITIONAL HOUSING PROGRAM, DISCHARGE INSTRUCTIONS AND FOLLOW UPS DISCUSSED WITH PT, VERBALIZED UNDERSTANDING, BELONGINGS ACCOUNTED FOR, PROVIDED WITH BUS TOKENS, PT LEFT IN STABLE CONDITION.
== END 2017-02-08 13:40 | disposition home or self-care (01) | DRG 469 ==
LOC: ER 16:18 → TELE1 20:21 → MED 02-05 20:15 → TELE 02-05 20:36 → MED 02-06 17:54
PROVIDERS: ADMIT Internal Medicine; ATTEND Internal Medicine
DX: N17.0 Acute kidney failure with tubular necrosis (principal); G92 Toxic encephalopathy; I95.9 Hypotension, unspecified; E87.1 Hypo-osmolality and hyponatremia; F43.10 Post-traumatic stress disorder, unspecified; E86.0 Dehydration; D72.829 Elevated white blood cell count, unspecified; G40.909 Epilepsy, unspecified, not intractable, without status epilepticus; M54.12 Radiculopathy, cervical region; Z68.30 Body mass index [BMI] 30.0-30.9, adult; Z79.899 Other long term (current) drug therapy; M43.6 Torticollis; I10 Essential (primary) hypertension; F42.9 Obsessive-compulsive disorder, unspecified; G89.4 Chronic pain syndrome; F40.00 Agoraphobia, unspecified; F32.9 Major depressive disorder, single episode, unspecified; J45.909 Unspecified asthma, uncomplicated; E66.9 Obesity, unspecified; G47.00 Insomnia, unspecified; Z98.890 Other specified postprocedural states; F17.200 Nicotine dependence, unspecified, uncomplicated
CPT/HCPCS: 36415; 70360-TC; 70450-TC; 71010-TC; 72125-TC; 80048-TC; 80076-TC; 80305; 81000-TC; 82962-TC; 83605-TC; 83735-TC; 84100-TC; 84484-TC; 85025-TC; 87081-TC; 87086-TC; 87186-TC; A4606; G0480; J2310; J2405; J7030; Z7610